=== PATIENT | female | born 1990 | race Two or more races ===

== ENCOUNTER 2016-08-31 19:48 | Emergency (ER) | payer MEDICAID ==
[2016-08-31] MEDS ORDERED: DIPH/PERTUSS(ACELL)/TETANUS VAC/PF 0.5 ML SYR (>=10YO) IM ONE (19:52)
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
[2016-08-31 19:55] VITALS: BP 126/73
== END 2016-08-31 22:00 | disposition left against medical advice (07) ==
LOC: ER 19:48
DX: S09.93XA Unspecified injury of face, initial encounter (principal); W17.89XA Other fall from one level to another, initial encounter; Y92.410 Unspecified street and highway as the place of occurrence of the external cause; Z23 Encounter for immunization
CPT/HCPCS: 90471; 90715; 99281

== ENCOUNTER 2016-09-03 22:41 | Emergency (ER) | payer MEDICAID ==
[2016-09-04 00:46] LABS: ABSOLUTE EOSINOPHILS # (AUTO) 0.1 10^3/uL (0.0-0.6); ABSOLUTE LYMPHOCYTES (AUTO) 1.9 10^3/uL (0.5-4.7); ABSOLUTE MONOCYTES (AUTO) 0.7 10^3/uL (0.1-1.4); ABSOLUTE NEUT (AUTO) 5.3 10^3/uL (1.7-8.2); BASOPHILS % (AUTO) 0.4 % (0-2); EOSINOPHILS % (AUTO) 1.1 % (0-6); HEMATOCRIT 34.6 % (36.0-47.0); HEMOGLOBIN 11.8 g/dL (12.0-15.5); HGB HCT DIFFERENCE 0.8; LYMPHOCYTES % (AUTO) 24.1 % (13-45); MEAN CORPUSCULAR HEMOGLOBIN 29.6 pg (27.0-33.4); MEAN CORPUSCULAR VOLUME 87 fl (80-97); MONOCYTES % (AUTO) 8.3 % (3-13); RED BLOOD COUNT 3.99 10^6/uL (3.72-5.28); RED CELL DISTRIBUTION WIDTH 15.6 % (11.5-14.0); SEGMENTED NEUTROPHILS % (AUTO) 66.1 % (42-78); WHITE BLOOD COUNT 8.1 10^3/uL (4.0-10.5)
[2016-09-04 00:50] LABS: APPEARANCE,URINE SLIGHTLY-CLOUDY; BILIRUBIN,URINE NEGATIVE (NEGATIVE); GLUCOSE, URINE NEGATIVE (NEGATIVE); KETONES,URINE NEGATIVE (NEGATIVE); LEUKOCYTE ESTERASE,URINE NEGATIVE (NEGATIVE); NITRITE,URINE NEGATIVE (NEGATIVE); PROTEIN,URINE NEGATIVE (NEGATIVE); URINE SPECIFIC GRAVITY 1.019; UROBILINOGEN,URINE NEGATIVE mg/dL (<2.0)
[2016-09-04 00:54] LABS: ALANINE AMINOTRANSFERASE 22 U/L (9-52); ALBUMIN 4.3 g/dL (3.5-5.0); ALKALINE PHOSPHATASE 63 U/L (38-126); ANION GAP 10 (5-19); ASPARTATE AMINO TRANSFERASE 21 U/L (14-36); BILIRUBIN,TOTAL 0.2 mg/dL (0.2-1.3); BLOOD UREA NITROGEN 20 mg/dL (7-20); CALCIUM 9.8 mg/dL (8.4-10.2); CARBON DIOXIDE 28 mmol/L (22-30); CHLORIDE 101 mmol/L (98-107); CREATININE RESULT 0.84 mg/dL (0.52-1.25); GLUCOSE 76 mg/dL (75-110); LIPASE 95.7 U/L (23-300); POTASSIUM 4.2 mmol/L (3.6-5.0); SODIUM 138.5 mmol/L (137-145); TOTAL PROTEIN 7.4 g/dL (6.3-8.2)
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
[2016-09-04] MEDS ORDERED: HYDROCODONE/ACETAMINOPHEN 5-325 MG 6 TAB/DSPK PO PRN (01:32)
[2016-09-04 01:59] VITALS: BP 114/79
== END 2016-09-04 01:56 | disposition home or self-care (01) ==
LOC: ER 22:41
DX: S00.211A Abrasion of right eyelid and periocular area, initial encounter (principal); S09.90XA Unspecified injury of head, initial encounter; H11.31 Conjunctival hemorrhage, right eye; R10.84 Generalized abdominal pain; R42 Dizziness and giddiness; V19.88XA Pedal cyclist (driver) (passenger) injured in other specified transport accidents, initial encounter; Y93.55 Activity, bike riding; Z32.02 Encounter for pregnancy test, result negative
CPT/HCPCS: 36415; 70450; 70486; 80053; 81001; 83690; 84703; 85025; 99284

== ENCOUNTER 2016-10-02 15:51 | Emergency (ER) | payer MEDICAID ==
[2016-10-02 16:02] VITALS: BP 108/72
--- NOTE | 2016-10-02 16:53 | ER Document Report ---
ED Medical Screen (RME) - General Chief Complaint: Vaginal Pain Stated Complaint: VAGINAL/BACK PAIN Notes: I briefly seen and evaluated this patient in my role as physician in triage. I have initiated orders based on this initial evaluation. Please see my colleague' s documentation for complete history, physical, management, diagnosis, and ultimate disposition. My brief evaluation: Patient presents with 2 weeks of pelvic pain and some irritation. She denies any urinary fixers he dysuria or hematuria. She says that she has some mild spotting after intercourse. Last episode was yesterday. The patient denies any other abdominal pain no nausea vomiting or diarrhea. She states she could be . She is . On exam, patient alert and oriented no acute distress vital signs stable patient is afebrile nontoxic appearing. Medical decision making: Initiating workup for pelvic pain and for . TRAVEL OUTSIDE OF THE [place] IN LAST 30 DAYS: No - Related Data Allergies/Adverse Reactions: No Known Allergies Allergy (Unverified 10/02/16 16:45) Past Medical History Renal/ Medical History: Denies: Hx Peritoneal Dialysis Past Surgical History: Reports: Hx Section - x 3 - Immunizations Hx Diphtheria, Pertussis, Tetanus Vaccination: Yes Physical Exam - Vital signs Vitals: Temp Pulse Resp BP Pulse Ox 98.7 F 77 20 108/72 98 10/02/16 15:59 10/02/16 15:59 10/02/16 15:59 10/02/16 15:59 10/02/16 15:59 Course - Vital Signs Vital signs: Temp Pulse Resp BP Pulse Ox 98.7 F 77 20 108/72 98 10/02/16 15:59 10/02/16 15:59 10/02/16 15:59 10/02/16 15:59 10/02/16 15:59
[2016-10-02 18:04] LABS: APPEARANCE,URINE SLIGHTLY-CLOUDY; BILIRUBIN,URINE NEGATIVE (NEGATIVE); GLUCOSE, URINE NEGATIVE (NEGATIVE); KETONES,URINE TRACE mg/dL (NEGATIVE); LEUKOCYTE ESTERASE,URINE LARGE (NEGATIVE); NITRITE,URINE NEGATIVE (NEGATIVE); PROTEIN,URINE NEGATIVE (NEGATIVE); URINE SPECIFIC GRAVITY 1.029; UROBILINOGEN,URINE NEGATIVE mg/dL (<2.0)
--- NOTE | 2016-10-02 18:52 | ER Document Report ---
ED GI/ - General Chief Complaint: Vaginal Pain Stated Complaint: VAGINAL/BACK PAIN Notes: The patient is a 26-year-old female, , presents with several days of vaginal itching and discharge with dysuria. She is also having mild back pain, dry cough and nausea. She thinks she feels because she is sleeping a lot. She has not taken a home test. Denies fevers, vomiting, diarrhea, constipation TRAVEL OUTSIDE OF THE [place] IN LAST 30 DAYS: No - Related Data Allergies/Adverse Reactions: No Known Allergies Allergy (Unverified 10/02/16 16:45) Past Medical History - General Information source: Patient - Social History Smoking Status: Unknown if Ever Smoked Family History: Reviewed & Not Pertinent Patient has suicidal ideation: No Patient has homicidal ideation: No Renal/ Medical History: Denies: Hx Peritoneal Dialysis Past Surgical History: Reports: Hx Section - x 3 - Immunizations Hx Diphtheria, Pertussis, Tetanus Vaccination: Yes Review of Systems - Review of Systems Notes: REVIEW OF SYSTEMS: CONSTITUTIONAL: -fevers, -chills EENT: -eye pain, -difficulty swallowing, -nasal congestion CARDIOVASCULAR:-chest pain, -syncope. RESPIRATORY: -cough, -SOB GASTROINTESTINAL: -abdominal pain, - nausea, -vomiting, -diarrhea GENITOURINARY: +dysuria, +vaginal discharge, -hematuria MUSCULOSKELETAL: +back pain, -neck pain SKIN: -rash or skin lesions. HEMATOLOGIC: -easy bruising or bleeding. LYMPHATIC: -swollen, enlarged glands. NEUROLOGICAL: -altered mental status or loss of consciousness, -headache, - neurologic symptoms PSYCHIATRIC: -anxiety, -depression. ALL OTHER SYSTEMS REVIEWED AND NEGATIVE. Physical Exam - Vital signs Vitals: Temp Pulse Resp BP Pulse Ox 98.7 F 77 20 108/72 98 10/02/16 15:59 10/02/16 15:59 10/02/16 15:59 10/02/16 15:59 10/02/16 15:59 - Notes Notes: PHYSICAL EXAMINATION: GENERAL: Well-appearing, well-nourished and in no acute distress. HEAD: Atraumatic, normocephalic. EYES: Pupils equal round and reactive to light, extraocular movements intact, sclera anicteric, conjunctiva are normal. ENT: nares patent, oropharynx clear without exudates. Moist mucous membranes. NECK: Normal range of motion, supple without lymphadenopathy LUNGS: Breath sounds clear to auscultation bilaterally and equal. No wheezes rales or rhonchi. HEART: Regular rate and rhythm without murmurs ABDOMEN: Soft, nontender, normoactive bowel sounds. No guarding, no rebound. No masses appreciated. : Mild malodorous vaginal discharge from cervix, nontender uterus and adnexa. EXTREMITIES: Normal range of motion, no pitting or edema. No cyanosis. NEUROLOGICAL: Cranial nerves grossly intact. Normal speech, normal gait. Normal sensory, motor, and reflex exams. PSYCH: Normal mood, normal affect. SKIN: Warm, Dry, normal turgor, no rashes or lesions noted. Course - Re-evaluation Re-evalutation: Patient recently began having intercourse with her old boyfriend and there may be concern for a STD. She would like to be treated for gonorrhea and chlamydia today. Her urine does show positive leuk esterase and WBC's. With the dysuria , will also treat for a UTI. She is not . She is in no respiratory distress and her lungs are clear. Will discharge home with instructions to use protection until her partner can be treated. - Vital Signs Vital signs: Temp Pulse Resp BP Pulse Ox 98.7 F 77 20 108/72 98 10/02/16 15:59 10/02/16 15:59 10/02/16 15:59 10/02/16 15:59 10/02/16 15:59 - Laboratory Laboratory results interpreted by me: 10/02/16 17:00 Urine Ketones TRACE H Ur Leukocyte Esterase LARGE H Urine Ascorbic Acid 20 H Discharge - Discharge Clinical Impression: Dysuria, Vaginal discharge, Cough Condition: Good Disposition: HOME, SELF-CARE Additional Instructions: Use condoms until your boyfriend can be treated for STDs. Go to the health department. PELVIC PAIN: There are many causes of pain in the pelvic area. The cause could be the tubes, ovaries, uterus, intestines, appendix, pelvic muscles and connective tissue, or the urinary tract. The cause of your pelvic pain is not clear. However, it seems safe to treat you outside the hospital. If the pain sounds like a temporary problem, we sometimes wait to see if it goes away. Other patients may need additional tests, such as pelvic ultrasound or cultures. Conditions may change. Call us or come back for reexamination if any problems occur, such as: (1) Pain that becomes more severe, steady, or becomes concentrated in one specific area. Also, pain that is more severe with movement or coughing. (2) Vomiting that persists or becomes more frequent. (3) Blood in the vomitus, urine, or bowel movements. Blood in the stool may have a tarry or black appearance. (4) Shaking chills or fever greater than 100 degrees. (5) The abdomen becomes more distended or swollen. (6) Bowel movements cease. (7) Heavy vaginal bleeding. ANTIBIOTIC THERAPY: You have been given an antibiotic prescription. It's important that you take all the medication, unless instructed otherwise by your physician. Failure to complete the entire course can result in relapse of your condition. Common side effects of antibiotics include nausea, intestinal cramping, or diarrhea. Women may develop vaginal yeast infections, and babies can get yeast (thrush) in the mouth following the use of antibiotics. Contact your physician if you develop significant side effects from this medication. Allergy to this antibiotic can result in hives, wheezing, faintness, or itching. If symptoms of allergy occur, stop the medication and call the doctor. FOLLOW-UP CARE: If you have been referred to a physician for follow-up care, call the physician s office for an appointment as you were instructed or within the next two days. If you experience worsening or a significant change in your symptoms, notify the physician immediately or return to the Emergency Department at any time for re-evaluation. Prescriptions: Nitrofurantoin/Nitrofuran Mac [Macrobid 100 mg Capsule] 1 tab PO BID #10 capsule Referrals: [facility] [Provider Group] - Follow up as needed
[2016-10-02] MEDS ORDERED: CEFTRIAXONE INJ 250 MG VIAL IM ONE (19:08)
[2016-10-02] MEDS ORDERED: ONDANSETRON 4 MG TAB.RAPDIS PO ONE (19:08)
[2016-10-02] MEDS ORDERED: IBUPROFEN 600 MG TABLET PO ONE (19:08)
[2016-10-02] MEDS ORDERED: AZITHROMYCIN 1 GM SUSP PACKET PO ONE (19:08)
[2016-10-02] MEDS ORDERED: LIDOCAINE 1% INJ-PF (10 MG/ML) 30 ML SDV INFIL ONE (19:08)
[2016-10-02 21:42] LABS: CHLAM PCR NOT DETECTED (NOT DETECT)
== END 2016-10-02 21:14 | disposition home or self-care (01) ==
LOC: ER 15:51
DX: N89.8 Other specified noninflammatory disorders of vagina (principal); R30.0 Dysuria; R05 Cough; R10.2 Pelvic and perineal pain; L29.2 Pruritus vulvae; M54.9 Dorsalgia, unspecified
CPT/HCPCS: 99283; 96372; 87210; 81025; 81001; 87491; 87591; S0119; J3490 ×2; Q0144; J0696

== ENCOUNTER 2016-12-02 14:08 | Emergency (ER) | payer MEDICAID ==
--- NOTE | 2016-12-02 16:25 | ER Document Report ---
ED Medical Screen (RME) - General Mode of Arrival: Ambulatory Information source: Patient TRAVEL OUTSIDE OF THE [place] IN LAST 30 DAYS: No - HPI Patient complains to provider of: Hematuria Onset: This morning - [id number] Associated Symptoms: Other - see notes above - Related Data Smoking: Non-smoker Frequency of alcohol use: None Drug Abuse: None <JUSTICE VASQUEZ - Last Filed: 12/02/16 17:07> <MELA WEST - Last Filed: 12/02/16 21:14> - General Chief Complaint: Abdominal Pain Stated Complaint: URINARY SYMPTOMS/ABDOMINAL PAIN Time Seen by Provider: 12/02/16 16:19 Notes: 26-year-old female presents to the ED complaining of hematuria and mild suprapubic abdominal pain that started earlier this morning. Patient reports that this has happened before while she has been taking Prozac. Patient also reports to feeling " movement" for the past 3-4 months. Patient has taken a test which has been negative. She explains that all of her past pregnancies have presented in a similar manner. Patient's last menstrual period was November 03, 2016. Patient is also concerned about having an STD. (JUSTICE VASQUEZ) - Related Data Allergies/Adverse Reactions: No Known Allergies Allergy (Unverified 10/02/16 16:45) Past Medical History - General Information source: Patient - Social History Cigarette use (# per day): No Chew tobacco use (# tins/day): No Frequency of alcohol use: None Renal/ Medical History: Denies: Hx Peritoneal Dialysis Past Surgical History: Reports: Hx Section - x 3 - Immunizations Hx Diphtheria, Pertussis, Tetanus Vaccination: Yes <JUSTICE VASQUEZ - Last Filed: 12/02/16 17:07> Review of Systems - Review of Systems Constitutional: No symptoms reported EENT: No symptoms reported Cardiovascular: No symptoms reported Respiratory: No symptoms reported Gastrointestinal: See HPI, Abdominal pain - mild suprapubic Genitourinary: See HPI, Hematuria Female Genitourinary: No symptoms reported Musculoskeletal: No symptoms reported Skin: No symptoms reported Hematologic/Lymphatic: No symptoms reported Neurological/Psychological: No symptoms reported -: Yes All other systems reviewed and negative <JUSTICE VASQUEZ - Last Filed: 12/02/16 17:07> Physical Exam - General General appearance: Alert In distress: None - Respiratory Respiratory status: No respiratory distress Breath sounds: Normal - Cardiovascular Rhythm: Regular Heart sounds: Normal auscultation Murmur: No Friction rub: No Gallop: None auscultated - Abdominal Inspection: Normal Distension: No distension Bowel sounds: Normal Tenderness: Tender - left lateral abdomen and LLQ are tender to palpate <JUSTICE VASQUEZ - Last Filed: 12/02/16 17:07> Course - Laboratory Result Diagrams: 12/02/16 17:18 12/02/16 17:18 <MELA WEST - Last Filed: 12/02/16 21:14> - Vital Signs Vital signs: Temp Pulse Resp BP Pulse Ox 97.9 F 56 L 18 132/77 H 100 12/02/16 20:59 12/02/16 20:59 12/02/16 20:59 12/02/16 20:59 12/02/16 20:59 - Laboratory Laboratory results interpreted by me: 12/02/16 12/02/16 12/02/16 17:18 17:18 17:18 RDW 14.2 H Total Protein 9.4 H Albumin 5.1 H Urine Protein 100 H Urine Blood LARGE H Scribe Documentation - Scribe Written by Scribe:: José Manuel Elizondo, 12/02/2016 1722 acting as scribe for :: Gypsy <JUSTICE VASQUEZ - Last Filed: 12/02/16 17:07>
[2016-12-02 17:50] LABS: ABSOLUTE LYMPHOCYTES (AUTO) 1.2 10^3/uL (0.5-4.7); ABSOLUTE MONOCYTES (AUTO) 0.4 10^3/uL (0.1-1.4); ABSOLUTE NEUT (AUTO) 4.7 10^3/uL (1.7-8.2); BASOPHILS % (AUTO) 0.2 % (0-2); EOSINOPHILS % (AUTO) 0.4 % (0-6); HEMOGLOBIN 12.7 g/dL (12.0-15.5); HGB HCT DIFFERENCE -0.9; LYMPHOCYTES % (AUTO) 18.6 % (13-45); MEAN CORPUSCULAR HEMOGLOBIN 29.8 pg (27.0-33.4); MEAN CORPUSCULAR HGB CONC 32.7 g/dL (32.0-36.0); MEAN CORPUSCULAR VOLUME 91 fl (80-97); MONOCYTES % (AUTO) 6.4 % (3-13); RED BLOOD COUNT 4.28 10^6/uL (3.72-5.28); RED CELL DISTRIBUTION WIDTH 14.2 % (11.5-14.0); SEGMENTED NEUTROPHILS % (AUTO) 74.4 % (42-78); WHITE BLOOD COUNT 6.4 10^3/uL (4.0-10.5)
[2016-12-02 17:59] LABS: ALANINE AMINOTRANSFERASE 27 U/L (9-52); ALBUMIN 5.1 g/dL (3.5-5.0); ALKALINE PHOSPHATASE 85 U/L (38-126); ANION GAP 17 (5-19); ASPARTATE AMINO TRANSFERASE 27 U/L (14-36); BILIRUBIN,DIRECT 0.3 mg/dL (0.0-0.4); BILIRUBIN,TOTAL 0.9 mg/dL (0.2-1.3); BLOOD UREA NITROGEN 7 mg/dL (7-20); CALCIUM 10.1 mg/dL (8.4-10.2); CARBON DIOXIDE 25 mmol/L (22-30); CHLORIDE 101 mmol/L (98-107); CREATININE RESULT 0.67 mg/dL (0.52-1.25); GLUCOSE 86 mg/dL (75-110); POTASSIUM 3.6 mmol/L (3.6-5.0); SODIUM 142.5 mmol/L (137-145); TOTAL PROTEIN 9.4 g/dL (6.3-8.2)
[2016-12-02 18:19] LABS: APPEARANCE,URINE SLIGHTLY-CLOUDY; BILIRUBIN,URINE NEGATIVE (NEGATIVE); GLUCOSE, URINE NEGATIVE (NEGATIVE); KETONES,URINE NEGATIVE (NEGATIVE); LEUKOCYTE ESTERASE,URINE NEGATIVE (NEGATIVE); NITRITE,URINE NEGATIVE (NEGATIVE); PROTEIN,URINE 100 mg/dL (NEGATIVE); URINE SPECIFIC GRAVITY 1.019; UROBILINOGEN,URINE NEGATIVE mg/dL (<2.0)
[2016-12-02] MEDS ORDERED: ACETAMINOPHEN 325 MG TABLET PO ONE (20:13)
[2016-12-02] MEDS ORDERED: HYDROCODONE/ACETAMINOPHEN 5-325 MG 6 TAB/DSPK PO PRN (22:00)
[2016-12-02] MEDS ORDERED: PROMETHAZINE HCL 25 MG TABLET PO ONE (22:00)
[2016-12-02] MEDS ORDERED: KETOROLAC TROMETHAMINE 60 MG/2 ML SDV IM ONE (22:00)
--- NOTE | 2016-12-02 22:05 | ER Document Report ---
ED GI/ - General Chief Complaint: Abdominal Pain Stated Complaint: URINARY SYMPTOMS/ABDOMINAL PAIN Time Seen by Provider: 12/02/16 16:19 Mode of Arrival: Ambulatory Notes: Patient is a 26-year-old female who comes emergency [place] for chief complaint of mild suprapubic abdominal pain that started earlier this morning, hematuria, and also vaginal bleeding that started last night. She states that she has stopped the Depakote a few months ago and she wonders if she is . She normally has irregular periods, last menstrual period was November 03. Patient denies vomiting, fever, vaginal discharge. She states she might of been exposed to an STD in the past but she is not having the "typical signs of this" . She denies any current medications TRAVEL OUTSIDE OF THE [place] IN LAST 30 DAYS: No - Related Data Allergies/Adverse Reactions: No Known Allergies Allergy (Unverified 10/02/16 16:45) Past Medical History - General Information source: Patient - Social History Smoking Status: Never Smoker Cigarette use (# per day): No Chew tobacco use (# tins/day): No Frequency of alcohol use: None Drug Abuse: None Lives with: Family Family History: Reviewed & Not Pertinent Patient has suicidal ideation: No Patient has homicidal ideation: No Renal/ Medical History: Reports: Hx Ovarian Cysts. Denies: Hx Peritoneal Dialysis Past Surgical History: Reports: Hx Section - x 3 - Immunizations Hx Diphtheria, Pertussis, Tetanus Vaccination: Yes Review of Systems - Review of Systems Constitutional: No symptoms reported EENT: No symptoms reported Cardiovascular: No symptoms reported Respiratory: No symptoms reported Gastrointestinal: See HPI Genitourinary: See HPI Female Genitourinary: See HPI Musculoskeletal: No symptoms reported Skin: No symptoms reported Hematologic/Lymphatic: No symptoms reported Neurological/Psychological: No symptoms reported Physical Exam - Vital signs Vitals: Temp Pulse Resp BP Pulse Ox 98.1 F 56 L 14 119/77 100 12/02/16 14:15 12/02/16 14:15 12/02/16 14:15 12/02/16 14:15 12/02/16 14:15 Interpretation: Normal - General General appearance: Appears well, Alert In distress: None - HEENT Head: Normocephalic, Atraumatic Eyes: Normal Pupils: PERRL - Respiratory Respiratory status: No respiratory distress Chest status: Nontender Breath sounds: Normal Chest palpation: Normal - Cardiovascular Rhythm: Regular Heart sounds: Normal auscultation Murmur: No - Abdominal Inspection: Normal Distension: No distension Bowel sounds: Normal Tenderness: Tender - Normalized lower abdominal tenderness, nonspecific, no guarding, no rebound tenderness Organomegaly: No organomegaly - Back Back: Normal, Nontender. No: Tender, CVA tenderness - Extremities General upper extremity: Normal inspection, Nontender, Normal color, Normal ROM , Normal temperature General lower extremity: Normal inspection, Nontender, Normal color, Normal ROM , Normal temperature, Normal weight bearing. No: Annette's sign - Neurological Neuro grossly intact: Yes Cognition: Normal Orientation: AAOx4 Caterina Coma Scale Eye Opening: Spontaneous [place] Coma Scale Verbal: Oriented [place] Coma Scale Motor: Obeys Commands [place] Coma Scale Total: 15 Speech: Normal Motor strength normal: LUE, RUE, LLE, RLE Sensory: Normal - Psychological Associated symptoms: Normal affect, Normal mood - Skin Skin Temperature: Warm Skin Moisture: Dry Skin Color: Normal Course - Re-evaluation Re-evalutation: Informed that she was not with a negative hCG. CBC, chemistry unremarkable, urine has some white blood cells but I suspect this was contaminated with menstrual blood. Patient complaining of pain but actually has an extremely benign exam with essentially no tenderness, definitely no guarding. Discussed different possibilities, I informed patient that unfortunately the blood contaminated the urine sample for the STD check, she however declines a pelvic, exam, she declines an TV U/S for r/o ovarian cysts. Will treat for cramping and potential UTI due to suprapubic tenderness, discussed follow up, discussed return precautions, patient states understanding agreement. - Vital Signs Vital signs: Temp Pulse Resp BP Pulse Ox 98.6 F 51 L 18 102/68 100 12/02/16 22:15 12/02/16 22:15 12/02/16 20:59 12/02/16 22:15 12/02/16 22:15 - Laboratory Result Diagrams: 12/02/16 17:18 12/02/16 17:18 Laboratory results interpreted by me: 12/02/16 12/02/16 12/02/16 17:18 17:18 17:18 RDW 14.2 H Total Protein 9.4 H Albumin 5.1 H Urine Protein 100 H Urine Blood LARGE H Discharge - Discharge Clinical Impression: Suprapubic abdominal pain, Abdominal cramping, Vaginal bleeding Condition: Stable Disposition: HOME, SELF-CARE Additional Instructions: Your test is negative, he will most likely having irregular menstrual cycles, take the Cipro antibiotic for urinary tract infection, take the naproxen for cramping, drink plenty of fluids, and rest. Follow-up with primary care for additional testing and management. Return to the emergency department for any concerning or worsening symptoms including fever, vomiting, severe pain, or any other concerning symptoms. Prescriptions: Ciprofloxacin HCl [Cipro 500 mg Tablet] 500 mg PO BID #6 tablet Naproxen 500 mg PO BID #20 tablet Forms: Return to Work
[2016-12-02 22:17] VITALS: BP 102/68
== END 2016-12-02 22:25 | disposition home or self-care (01) ==
LOC: ER 14:08
DX: N93.9 Abnormal uterine and vaginal bleeding, unspecified (principal); R10.9 Unspecified abdominal pain; R39.198 Other difficulties with micturition
CPT/HCPCS: 99284; 96372; 36415; 84703; 85025; 80053; 81001; J3490 ×2; J1885